=== PATIENT | male | born 1990 | race African-American/Black ===

== ENCOUNTER 2020-03-06 22:54 | Emergency (ER) | payer OTHER ==
[2020-03-06] MEDS ORDERED: Ibuprofen 800 MG TAB ONE (23:21)
--- NOTE | 2020-03-07 07:42 | RAD ---
Exam:Right hand 3 views HISTORY: Metal door with closed fist. COMPARISON: None FINDINGS: Preserved joint spaces. No fracture, cortical irregularity or periosteal IMPRESSION: No fracture.
== END 2020-03-07 00:30 ==
LOC: NAV ERS 22:54
DX: S60.221A Contusion of right hand, initial encounter (principal); S60.412A Abrasion of right middle finger, initial encounter; F17.210 Nicotine dependence, cigarettes, uncomplicated; B20 Human immunodeficiency virus [HIV] disease; Z79.899 Other long term (current) drug therapy; W22.8XXA Striking against or struck by other objects, initial encounter